=== PATIENT | female | born 1975 | race Caucasian/White ===

== ENCOUNTER 2016-08-05 22:50 | Emergency (ER) | payer BC, OTHER ==
[~2016-08-05] VITALS: Ht 167.6 cm; Wt 122.0 kg
[~2016-08-05 22:50] MED LIST: FRRS300 PO; MTR600X PO; PRENTAB26 PO
[2016-08-05 22:55] VITALS: TEMP 36.9; Ht 167.6 cm; Wt 122.0 kg
[2016-08-05] MEDS ORDERED: CLIN300C2 PO (23:07)
[2016-08-05] MEDS ORDERED: LISI-461 PO (23:08)
[2016-08-05] MEDS ORDERED: HYDR-3124 PO (23:09)
[2016-08-05] MEDS ORDERED: HYDR-5688 PO (23:10)
[2016-08-05] MEDS ORDERED: ORAJEL TOP (23:13)
[2016-08-05] MEDS ORDERED: KETOROLAC TROMETHAMINE 30 MG/ML VIAL IV STA (23:50)
--- NOTE | 2016-08-05 23:53 | EMERGENCY ROOM VISIT NOTE ---
History Report prepared by Dixieibe: Jennifer Murphy Under the Supervision of: Dr. Lacie Brown D.O. First contact with patient: 23:08 Chief Complaint: DENTAL PAIN Stated Complaint: ABSCESSED TOOTH, FACIAL SWELLING Nursing Triage Summary: Patient reports that pain was present in right side of mouth yesterday, swelling began at 0500 this morning, [facility] and was given clindamycin and vicoden. Patient states that swelling is worse. History of Present Illness The patient is a 40 year old female who presents to the Emergency Room with complaints of worsening right sided dental pain that started yesterday. Around 0500 this morning, her mouth began swelling up, so she went to a local [facility] clinic. She was given Clindamycin and Vicodin at [facility], but states they have provided minimal relief and her swelling continues to worsen. 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 She rates her current pain as a 7/10 in severity. She has also tried using Orajel with no major improvement. The patient admits to some nausea from her pain, but she has not vomited. She denies any recent fevers. She has been eating and drinking normally until her pain worsened today. Source of History: patient Onset: yesterday Position: teeth Symptom Intensity: 7/10 Timing: worsening Modifying Factors (Relieving): narcotics (Vicodin), other (Clindamycin, Orajel) Associated Symptoms: + nausea, No fevers, No vomiting Review of Systems See HPI for pertinent positives & negatives. A total of 10 systems reviewed and were otherwise negative. Past Medical & Surgical Medical Problems: (1) Vaginal delivery Social History Smoking Status: Never Smoker Smokeless Tobacco Use: No Alcohol Use: occasionally Drug Use: none Marital Status: Housing Status: lives with family Occupation Status: employed Current/Historical Medications Scheduled Clindamycin Hcl (Cleocin), 300 MG PO Q6 Lisinopril (Zestril), 10 MG PO DAILY [Orajel], 1 APPLN TOP DAILY Scheduled PRN Hydrocodone/Acetaminophen 5MG/325MG ([place] 5MG/325MG), 1 TABLET PO Q4-6 PRN for Pain Hydroxyzine Hcl (Atarax), 25 MG PO Q6H PRN for Anxiety Allergies Coded Allergies: No Known Allergies (Verified , 08/05/16) Physical Exam Vital Signs Date Time Temp Pulse Resp B/P (MAP) Pulse Ox O2 Delivery O2 Flow Rate FiO2 08/06/16 02:04 100 18 131/94 95 08/05/16 22:55 36.9 107 19 165/85 97 Room Air Physical Exam General: There is obvious cellulitis to the right side of the face with edema, erythema and warmth. HEENT: Head - normocephalic and atraumatic Pupils are equal, round, and reactive to light. Extraocular eye muscles are intact, and sclera are anicteric. Nose - moist nasal mucosa without discharge. Mouth - moist buccal mucosa. Abscessed tooth and gingival area, with edema to upper right teeth. Neck: Supple; no JVD, nuchal rigidity, cervical lymphadenopathy. Heart: Regular rate and rhythm. There is a normal S1 and S2 with no murmurs, clicks, or gallops appreciated. Lungs: Clear to auscultation bilaterally with no wheezes, rales, or rhonchi. Abdomen: Soft, completely nontender, nondistended, with good bowel sounds. There are no palpable pulsatile masses or hepatosplenomegaly. There is no guarding, rigidity, or rebound noted. Extremities: No evidence of cyanosis, clubbing, or edema. There are easily palpable peripheral pulses. Skin: warm and dry with good turgor and no rashes. Medical Decision & Procedures Laboratory Results 08/06/16 00:20 Red Blood Count 5.06, Mean Corpuscular Volume 86.4, Mean Corpuscular Hemoglobin 28.9, Mean Corpuscular Hemoglobin Concent 33.4, Mean Platelet Volume 11.0, Neutrophils (%) (Auto) 67.0, Lymphocytes (%) (Auto) 18.9, Monocytes (%) (Auto) 12.1, Eosinophils (%) (Auto) 1.6, Basophils (%) (Auto) 0.2, Neutrophils # (Auto ) 8.20, Lymphocytes # (Auto) 2.32, Monocytes # (Auto) 1.48, Eosinophils # (Auto ) 0.19, Basophils # (Auto) 0.03 Test 08/06/16 00:20 White Blood Count 12.25 K/uL (4.8-10.8) Red Blood Count 5.06 M/uL (4.2-5.4) Hemoglobin 14.6 g/dL (12.0-16.0) Hematocrit 43.7 % (37-47) Mean Corpuscular Volume 86.4 fL (80-100) Mean Corpuscular Hemoglobin 28.9 pg (25-34) Mean Corpuscular Hemoglobin Concent 33.4 g/dl (32-36) Platelet Count 199 K/uL (130-400) Mean Platelet Volume 11.0 fL (7.4-10.4) Neutrophils (%) (Auto) 67.0 % Lymphocytes (%) (Auto) 18.9 % Monocytes (%) (Auto) 12.1 % Eosinophils (%) (Auto) 1.6 % Basophils (%) (Auto) 0.2 % Neutrophils # (Auto) 8.20 K/uL (1.4-6.5) Lymphocytes # (Auto) 2.32 K/uL (1.2-3.4) Monocytes # (Auto) 1.48 K/uL (0.11-0.59) Eosinophils # (Auto) 0.19 K/uL (0-0.5) Basophils # (Auto) 0.03 K/uL (0-0.2) RDW Standard Deviation 45.8 fL (36.4-46.3) RDW Coefficient of Variation 14.6 % (11.5-14.5) Immature Granulocyte % (Auto) 0.2 % Immature Granulocyte # (Auto) 0.03 K/uL (0.00-0.02) Laboratory results per my review. Medications Administered Medications (Trade) Dose Ordered Sig/Jose Route Start Time Stop Time Status Last Admin Dose Admin Ketorolac Tromethamine (Toradol Inj) 30 mg NOW STAT IV 08/05/16 23:50 08/05/16 23:52 DC 08/06/16 00:20 30 MG Ampicillin Sodium/ Sulbactam Sodium 3000 mg/Sodium Chloride 108 ml @ 200 mls/hr NOW STAT IV 08/06/16 01:00 08/06/16 01:32 DC 08/06/16 01:10 200 MLS/HR Procedure Ampicillin Sodium/Sulbactam Sodium IV, Toradol IV. ED Course 2338: Past medical records reviewed. The patient was evaluated in room B7. A complete history and physical exam was performed. Labs were drawn as above. 2350: Toradol 30 mg IV. 0100: Ampicillin Sodium/Sulbactam Sodium 3000 mg/NSS 108 ml @ 200 mls/hr IV. 0101: I reevaluated the patient. Her swelling has decreased slightly as a result of sitting upright. Toradol has provided good relief for her pain. I will order IV Unasyn and provide the patient with a note for work. 0145: I reevaluated the patient. She is feeling much better. I discussed her results and discharge instructions and she verbalized complete understanding and agreement. Medical Decision I attest that I have personally reviewed the patient's current medication list. Patient was found to have a mildly elevated blood pressure on screening, but this is circumstantial due to pain and does not require follow-up. The patient is a 40 year old female who presents to the ED with dental pain. Differential diagnosis includes: Facial cellulitis, orbital cellulitis, periorbital cellulitis and dental abscess. Lab results show a WBC of 12.2, stable H&H and 67% Neutrophils. The patient has obvious right upper dental abscess. This has resulted in edema to the right side of the face with some facial cellulitis. She has no fever or leukocytosis. I will treat her with IV Unasyn and have her continue the clindamycin as directed. She will use Vicodin for pain. She was told to return to the emergency department immediately if she developed worsening pain, fever or vomiting. She plans to follow-up with her dentist who happens to be her cousin. Impression Primary Impression: Dental abscess Additional Impression: Facial cellulitis Scribe Attestation The scribe's documentation has been prepared under my direction and personally reviewed by me in its entirety. I confirm that the note above accurately reflects all work, treatment, procedures, and medical decision making performed by me. Departure Information Dispostion Home / Self-Care Referrals Jordon Giles PA-C (PCP) Patient Instructions Dental Abscess, ED Cellulitis Facial, [facility] Additional Instructions Rest with your head elevated. Take clindamycin as directed. Return to the ER if you develop a fever or vomiting Follow up on Sunday with your dentist(cousin) Problem Qualifiers
[2016-08-06 00:39] LABS: BASO % 0.2 %; BASO ABS # 0.03 K/uL (0-0.2); COMPLETE YES; EOS % 1.6 %; HEMATOCRIT 43.7 % (37-47); IG% 0.2 %; LYMPH % 18.9 %; LYMPH ABS # 2.32 K/uL (1.2-3.4); MEAN CELL VOLUME 86.4 fL (80-100); MEAN CORPUSCULAR HEMOGLOBIN 28.9 pg (25-34); MEAN CORPUSCULAR HGB CONC 33.4 g/dl (32-36); MONO % 12.1 %; PLATELET COUNT 199 K/uL (130-400); RED BLOOD COUNT 5.06 M/uL (4.2-5.4); WHITE BLOOD COUNT 12.25 K/uL (4.8-10.8)
[2016-08-06] MEDS ORDERED: AMPICILLIN/SULBACTAM SOD INJ 3,000 MG in SODIUM CHLORIDE 0.9% 100ML 100 ML IV STA (01:00)
[2016-08-06 02:04] VITALS: BP 131/94; PULSE 100; O2SAT 95
== END 2016-08-06 02:05 | disposition home or self-care (01) ==
LOC: C.EDB 22:51
DX: K04.7 Periapical abscess without sinus (principal); L03.211 Cellulitis of face